=== PATIENT | male | born 1965 | race Caucasian/White ===

== ENCOUNTER 2017-06-20 20:50 | Emergency (ER) | payer BC ==
[2017-06-20] MEDS ORDERED: Lidocaine 1% 20 ML MDV ONE (21:57)
[2017-06-20] MEDS ORDERED: Bupivacaine 0.5% 10 ML VIAL ONE (21:57)
--- NOTE | 2017-06-20 21:57 | RAD ---
LEFT FOREARM RADIOGRAPHS TWO VIEWS 06/20/17 PROVIDED CLINICAL HISTORY: Left wrist pain status post injury. FINDINGS: There is a transversely oriented mildly dorsally displaced fracture of the distal radial metaphyseal region. No additional fracture is evident. IMPRESSION: Displaced distal radial metaphyseal region fracture. POS: [facility]
--- NOTE | 2017-06-20 22:03 | RAD ---
LEFT WRIST RADIOGRAPHS THREE VIEWS 06/20/17 PROVIDED CLINICAL HISTORY: Left wrist pain. FINDINGS: There is a comminuted intra-articular fracture of the distal radius. There is displacement of the dis joe fragment dorsally by about one cortex width. Ulnar styloid fracture nondisplaced is also suspecte d. Alignment appears otherwise anatomic. IMPRESSION: Distal radial and ulnar fractures as above. POS: [facility]
[2017-06-20] MEDS ORDERED: Morphine 4 MG/ML Carpuject ONE (22:07)
[2017-06-20] MEDS ORDERED: Ondansetron HCl/PF 4 MG/2 ML Vial ONE (22:07)
--- NOTE | 2017-06-20 23:31 | RAD ---
LEFT WRIST RADIOGRAPH THREE VIEWS 06/20/17 PROVIDED CLINICAL HISTORY: Post reduction. FINDINGS/IMPRESSION: Comparison is made with the examination performed earlier same date. Interval reduction of the previously described left distal radial fracture with subsequent improved a lignment. Interval splint placement. Nondisplaced ulnar styloid fracture is again seen. POS: [facility]
== END 2017-06-20 23:40 | disposition home or self-care (01) ==
LOC: SCSER 20:50
DX: S52.532A Colles' fracture of left radius, initial encounter for closed fracture (principal); X50.9XXA Other and unspecified overexertion or strenuous movements or postures, initial encounter; Y93.22 Activity, ice hockey
CPT/HCPCS: 25605; 96374; 96375; J2001; J2270; J2405; J3490

== ENCOUNTER → 2017-06-22 | Day surgery (SDC) | payer BC ==
[2017-06-21 16:05] VITALS: BMI 22.1
[~2017-06-22] MED LIST: CEFAZOLIN/Water 2 GM/20 ML SYRINGE ONE; Fentanyl 100 MCG/2 ML VIAL IV PRN; Fentanyl 100 MCG/2 ML VIAL ONE; Ketorolac Tromethamine 30 MG/ML VIAL IVP PRN; Midazolam HCl 2 mg/2 ml Vial ONE; Ondansetron HCl/PF 4 MG/2 ML Vial IVP PRN; Promethazine HCl 25 MG/ML VIAL IM PRN; Ropivacaine 0.2% 550 ML 550 ML NERVE BLCK SCH; Zolpidem Tartrate 5 MG TAB PO PRN; traMADol HCl 50 MG TAB PO PRN
--- NOTE | 2017-06-22 12:10 | OP ---
DATE OF PROCEDURE: 06/22/2017 OPERATION: Open reduction and internal fixation of left distal radius fracture. PREOPERATIVE DIAGNOSIS: Left comminuted and displaced distal radius fracture. POSTOPERATIVE DIAGNOSIS: Left comminuted and displaced distal radius fracture. COMPLICATIONS: None. ESTIMATED BLOOD LOSS: Minimal. SURGEON: Jorge Gilliam M.D. TOBACCO ROLLER: Russell Hensley PA-C. INDICATIONS: Heladio is a 51-year-old male, who fractured his wrist playing hockey. He sustained a d istal radius fracture. He was indicated for open reduction and internal fixation to restore anatomic alignment and promote healing. Risks have been reviewed in detail. He elected to proceed with the operation. DESCRIPTION OF PROCEDURE: Mr. Frank was identified in the preoperative holding area. His correct extremity was marked. He was carried to the operating room. He was positioned supine. General anes thesia was induced. A multidisciplinary timeout was performed. The left arm was prepped and draped in a sterile fashion. We began the procedure with a volar approach to the wrist. We dissected down through the subcutaneou s tissues to the FCR tendon. The tendon sheath was incised. The tendon was retracted. We then expo sed the underlying pronator quadratus. This was elevated from the distal radius. We then visualized the underlying fracture. The fracture was comminuted and displaced. We used a Casscoe elevator to re duce the fracture back into its anatomic position. We held traction on this and took x-rays confirmi ng reduction. We were pleased with reduction. At this point, we applied a [employer]ynthes volar plate along the volar cortex. We placed multiple proximal and distal locking screws. We took x-ray images conf irming reduction and plate placement. There were no complications. We filled all screw holes. We t ook final x-rays. We irrigated and closed with 2-0 Vicryl suture followed by nylon for the skin. A sterile dressing was applied. The patient was taken to the recovery room in good condition after a s plint was placed. IMPLANTS: A [employer]ynthes volar distal radius locking plate, 3-hole.
--- NOTE | 2017-06-22 19:24 | RAD ---
LEFT WRIST TWO VIEWS: 06/22/17 HISTORY: 51-year-old male status post left wrist fracture. COMPARISON: 06/22/17, 11:55 a.m. study. Metal plate and screws stabilize the distal radial fracture with satisfactory position and alignment. IMPRESSION: Metal plate and screws stabilize distal radius. Stable from prior study. POS: [facility]
== END ==
LOC: SDC 08:54
PROVIDERS: ATTEND Orthopaedic Surgery
PROC: 0PSJ04Z Reposition Left Radius with Internal Fixation Device, Open Approach (ICD-10-PCS; principal; 2017-06-22)
DX: S52.502A Unspecified fracture of the lower end of left radius, initial encounter for closed fracture (principal); Y93.69 Activity, other involving other sports and athletics played as a team or group; Z98.890 Other specified postprocedural states
CPT/HCPCS: 76001; A4306; C1713; J0131; J2250; J2795; J3010